=== PATIENT | female | born 1955 | race Caucasian/White ===

== ENCOUNTER → 2016-03-10 | Outpatient (CLI) | payer OTHER ==
--- NOTE | 2016-03-10 18:42 | DX ---
Lumbar spine, 2 views HISTORY: M48.06, spinal fusion. COMPARISON: January 2016. FINDINGS: Bilateral transpedicular screws and fusion rods at the L2, L3, L4, L5, and S1 levels with h ardware appearing intact. Interbody disk grafts after diskectomies at L2-L3, L3-L4, L4-L5 and L5-S1 l evels again noted. Moderate levoscoliosis approximately 20 degrees. Moderate degenerative disk disease at L1-L2 with mod erate disk space narrowing, endplate diskogenic changes and osteophytes noted. IMPRESSION: Diskectomies and posterior fusion from L2 through S1 appearing similar to the previous [facility].
== END ==
LOC: FIMAGING 12:01
PROVIDERS: ATTEND Physician Assistant
DX: M48.06 Spinal stenosis, lumbar region (principal); Z98.1 Arthrodesis status

== ENCOUNTER → 2016-05-18 | Outpatient (CLI) | payer OTHER | LOC: FIMAGING 16:22 | PROVIDERS: ATTEND Physician Assistant | DX: Z09 Encounter for follow-up examination after completed treatment for conditions other than malignant neoplasm (principal); Z98.1 Arthrodesis status; M41.86 Other forms of scoliosis, lumbar region ==

== ENCOUNTER → 2016-07-03 | Outpatient (CLI) | payer OTHER ==
[~2016-07-03] MED LIST: IOPAMIDOL (ISOVUE-M 200) 20 ML VIAL ONE; LIDOCAINE 1% 30 ML SDV ONE; NA BICARBONATE 50 MEQ/50 ML VIAL ONE
== END ==
LOC: FIMAGING 07:51
PROVIDERS: ATTEND Neurological Surgery
PROC: B01BYZZ Fluoroscopy of Spinal Cord using Other Contrast (ICD-10-PCS; principal; 2016-07-03)
DX: M54.16 Radiculopathy, lumbar region (principal)
CPT/HCPCS: Q9966

== ENCOUNTER → 2016-08-26 | Outpatient (CLI) | payer OTHER | LOC: FIMAGING 16:55 | PROVIDERS: ATTEND Nurse Practitioner | DX: Z09 Encounter for follow-up examination after completed treatment for conditions other than malignant neoplasm (principal); Z98.1 Arthrodesis status ==

== ENCOUNTER → 2016-11-09 | Outpatient (CLI) | payer OTHER | LOC: FIMAGING 16:48 | PROVIDERS: ATTEND Nurse Practitioner | DX: Z09 Encounter for follow-up examination after completed treatment for conditions other than malignant neoplasm (principal); Z98.1 Arthrodesis status ==

== ENCOUNTER → 2017-01-25 | Outpatient (CLI) | payer OTHER | LOC: FIMAGING 16:52 | PROVIDERS: ATTEND Neurological Surgery | DX: Z98.1 Arthrodesis status (principal); M54.5 Low back pain; M25.552 Pain in left hip ==

== ENCOUNTER → 2017-07-20 | Outpatient (CLI) | payer OTHER | LOC: FIMAGING 15:36 | PROVIDERS: ATTEND Nurse Practitioner | DX: M48.07 Spinal stenosis, lumbosacral region (principal); M41.86 Other forms of scoliosis, lumbar region; Z98.1 Arthrodesis status ==

== ENCOUNTER → 2017-10-25 | Outpatient (CLI) | payer OTHER | LOC: FIMAGING 16:50 | PROVIDERS: ATTEND Physical Medicine & Rehabilitation Neuromuscular Medicine | DX: Z98.1 Arthrodesis status (principal); T84.418A Breakdown (mechanical) of other internal orthopedic devices, implants and grafts, initial encounter; M41.86 Other forms of scoliosis, lumbar region ==

== ENCOUNTER → 2018-01-11 | Outpatient (CLI) | payer OTHER | LOC: FCPNEURO 23:23 | PROVIDERS: ATTEND Psychiatry & Neurology Sleep Medicine | DX: G47.33 Obstructive sleep apnea (adult) (pediatric) (principal); G47.34 Idiopathic sleep related nonobstructive alveolar hypoventilation; G47.61 Periodic limb movement disorder ==

== ENCOUNTER → 2018-05-17 | Outpatient (CLI) | payer OTHER | LOC: FIMAGING 16:21 → EDSTATUS 16:22 | PROVIDERS: ATTEND Neurological Surgery | DX: M54.5 Low back pain (principal); M25.552 Pain in left hip; M51.36 Other intervertebral disc degeneration, lumbar region; M41.86 Other forms of scoliosis, lumbar region; Z98.1 Arthrodesis status ==